=== PATIENT | female | born 1975 | race Caucasian/White ===

== ENCOUNTER 2017-11-01 20:42 | Emergency (ER) | payer BC ==
[~2017-11-01 20:42] MED LIST: COLACE50 MG PO; LEVOXYL0.088 MG PO; PRENATAL VITA1 UDTAB PO; ZITHROMAX 250M250 MG PO
[2017-11-01 21:04] VITALS: BP 174/99; PULSE 66; TEMP 97.9
== END 2017-11-01 22:33 | disposition left against medical advice (07) ==
LOC: COL.ER 20:42
DX: R10.32 Left lower quadrant pain (principal)

== ENCOUNTER → 2018-08-14 | Outpatient (CLI) | payer BC | LOC: MC.RAD 13:37 | DX: Z12.31 Encounter for screening mammogram for malignant neoplasm of breast (principal) ==

== ENCOUNTER → 2019-11-12 | Outpatient (CLI) | payer BC | LOC: MC.RAD 18:20 | DX: Z12.31 Encounter for screening mammogram for malignant neoplasm of breast (principal) ==

== ENCOUNTER → 2020-12-09 | Outpatient (CLI) | payer OTHER | LOC: MC.RAD 11-14 09:30 | DX: Z12.31 Encounter for screening mammogram for malignant neoplasm of breast (principal) ==

== ENCOUNTER 2021-02-18 09:45 | Outpatient (RCR) | payer OTHER | END 2021-03-22 | disposition home or self-care (01) | LOC: WSST | DX: J38.2 Nodules of vocal cords (principal) ==

== ENCOUNTER → 2022-02-04 | Outpatient (CLI) | payer OTHER | LOC: MC.RAD 12-17 09:15 | DX: Z12.31 Encounter for screening mammogram for malignant neoplasm of breast (principal) ==